=== PATIENT | male | born 1990 | race African-American/Black ===

== ENCOUNTER 2019-09-24 21:26 | Emergency (ER) | payer SELFPAY ==
[2019-09-24] MEDS ORDERED: Lidocaine 1% INJ* 10 MG/ML 30 ML SDV INJ ONE (23:43)
[2019-09-24] MEDS ORDERED: Bupivacaine 0.5%* 50 ML MDV VIAL INJ ONE (23:43)
[2019-09-24] MEDS ORDERED: Amoxicillin/Clavulanate TAB* 875 MG PO ONE (23:43)
--- NOTE | 2019-09-24 23:45 | ED ---
Throat Pain/Nasal Congestion - HPI Summary HPI Summary: 29-year-old male presents to the emergency department today with a chief complaint of left lower dental pain which began 3 days ago. Patient denies fevers. Patient states he was eating food when he believes his tooth cracked and now she feels like his cheek is swollen. Patient's pain is made worse with eating and made better with smoking marijuana. Patient has plans to see a dentist but is here for pain relief. Patient also complains of exposure to possible poly-fluids via a needlestick yesterday evening. Patient states he was driving a car when he felt a pinprick on his butt when he realized it was due to a needle. Patient is otherwise well and denies fever, chest pain, abdominal pain, pain with urination, rash, shortness of breath. Surgical history and family history is noncontributory. - History of Current Complaint Chief Complaint: EDEarPain Time Seen by Provider: 09/24/19 21:50 Hx Obtained From: Patient Onset/Duration: Gradual Onset Severity: Moderate Cough: None - Allergies/Home Medications Allergies/Adverse Reactions: Allergies Allergy/AdvReac Type Severity Reaction Status Date / Time No Known Allergies Allergy Verified 09/24/19 21:31 Home Medications: Home Medications Cyclobenzaprine TAB* [Flexeril TAB*] 10 mg PO TID PRN #15 tab 06/17/16 [Rx] Ibuprofen TAB* [Motrin TAB* 800 MG] 800 mg PO Q8H PRN #60 tab 06/17/16 [Rx] Amoxicillin/Clavulanate TAB* [Augmentin TAB 875*] 875 mg PO BID 7 Days #14 tab 09/25/19 [Rx] Ibuprofen TAB* [Motrin TAB* 800 MG] 800 mg PO Q8H PRN #12 tab 09/25/19 [Rx] PMH/Surg Hx/FS Hx/Imm Hx Infectious Disease History: No Infectious Disease History: Denies: Traveled Outside the [place] in Last 30 Days - Family History Known Family History: Positive: Hypertension - Social History Alcohol Use: Occasionally Alcohol Amount: hasn't drank this week Substance Use Type: Reports: Marijuana Substance Use Comment - Amount & Last Used: daily Smoking Status (MU): Light Every Day Tobacco Smoker Review of Systems Constitutional: Negative Eyes: Negative Positive: Dental Pain, Ear Ache Cardiovascular: Negative Respiratory: Negative Gastrointestinal: Negative Genitourinary: Negative Musculoskeletal: Negative Skin: Negative Neurological/Mental Status: Negative Positive: Anxious All Other Systems Reviewed And Are Negative: Yes Physical Exam - Summary Physical Exam Summary: Patient in no acute distress. Dentition is in poor repair. There is no obvious dental abscess. No evidence of cellulitis of the face. No evidence of Dawood angina. Triage Information Reviewed: Yes Vital Signs On Initial Exam: Initial Vitals Temp Pulse Resp BP Pulse Ox 98.2 F 116 18 167/78 98 09/24/19 21:31 09/24/19 21:31 09/24/19 21:31 09/24/19 21:31 09/24/19 21:31 Vital Signs Reviewed: Yes Appearance: Positive: Well-Appearing, No Pain Distress, Well-Nourished Skin: Positive: Warm, Skin Color Reflects Adequate Perfusion Eyes: Positive: EOMI, CARLOS ENT: Positive: Hearing grossly normal Respiratory/Lung Sounds: Positive: Clear to Auscultation, Breath Sounds Present Cardiovascular: Positive: RRR, S1, S2 Musculoskeletal: Positive: Strength/ROM Intact Neurological: Positive: Sensory/Motor Intact, Alert, Oriented to Person Place, Time, Normal Gait, Facial Symmetry, Speech Normal Psychiatric: Positive: Normal, Affect/Mood Appropriate AVPU Assessment: Alert Procedures - Sedation Patient Received Moderate/Deep Sedation with Procedure: No Diagnostics - Vital Signs Vital Signs Temp Pulse Resp BP Pulse Ox 09/24/19 21:31 98.2 F 116 18 167/78 98 - Laboratory Result Diagrams: 09/24/19 23:50 09/24/19 23:50 Lab Statement: Any lab studies that have been ordered have been reviewed, and results considered in the medical decision making process. EENT Course/Dx - Course Course Of Treatment: Patient was evaluated in the emergency department today for dental pain and complaint of possible exposure to bodily fluids via needle stick. Vitals noted and stable. Laboratory studies returned showing no significant abnormalities including no leukocytosis or electrolyte disturbance. Patient will be contacted with abnormal results of possible exposure labs. Patient was given Augmentin for dental abscess and ibuprofen for pain. Patient discharged with outpatient follow-up with dentistry and referral to infectious disease for further evaluation and management of exposure to bodily fluids. - Differential Diagnoses Differential Diagnoses: Dental Abscess, Dental Caries - Diagnoses Provider Diagnoses: History of exposure to hazardous bodily fluids, Pain, dental Discharge ED - Sign-Out/Discharge Documenting (check all that apply): Patient Departure - Discharge Plan Condition: Stable Disposition: HOME Prescriptions: Amoxicillin/Clavulanate TAB* [Augmentin TAB 875*] 875 mg PO BID 7 Days #14 tab Ibuprofen TAB* [Motrin TAB* 800 MG] 800 mg PO Q8H PRN #12 tab PRN Reason: Pain - Mild Patient Education Materials: Toothache (ED), Body Substance Exposure (ED) Referrals: [facility] [Outside] - 5 Days Stacia RODRIGUEZ,Heraclio Jha [Medical Doctor] - 7 Days No Primary Care Phys,NOPCP [Primary Care Provider] - Additional Instructions: Please take antibiotics as directed. Augmentin 875 twice daily for 7 days. Please follow up with a dentist for definitive management of your dental pain. Please follow-up with Dr. Palomo in 5-7 days for further evaluation and management and investigation of possible exposure to pathogens due to needlestick. Please return to the emergency department immediately if you develop any new or worsening symptoms. take ibuprofen for pain. - Billing Disposition and Condition Condition: STABLE Disposition: Home
[2019-09-24 23:59] LABS: ABS Basophils 0.2 10^3/ul (0-0.2); ABS Eosinophils 0.2 10^3/ul (0-0.6); ABS Lymphocytes 1.8 10^3/ul (1.0-4.8); ABS Monocytes 0.6 10^3/ul (0-0.8); ABS Neutrophils 3.8 10^3/ul (1.5-7.7); Eosinophil % 2.9 %; Hematocrit 46 % (42-52); Hemoglobin 15.1 g/dL (14.0-18.0); Lymphocyte % 26.6 %; Mean Corpuscular HGB Conc 33 g/dL (31-36); Mean Corpuscular Hemoglobin 29 pg (27-31); Mean Corpuscular Volume 88 fL (80-94); Mean Platelet Volume 7.8 fL (7.4-10.4); Nucleated Red Blood Cells % 0.1; Platelet Count 258 10^3/uL (150-450); Red Blood Count 5.21 10^6 /uL (4.18-5.48); Red Cell Distribution Width 13 % (10-15); White Blood Count 6.6 10^3/uL (3.5-10.8)
[2019-09-25 00:26] LABS: Albumin/Globulin Ratio 1.5 (1-3); BUN/Creatinine Ratio 9.8 (8-20); Calcium 10.3 mg/dL (8.6-10.3); EGFR African American 83.6 (>60); EGFR Non-African American 69.1 (>60); Globulin 3.4 g/dL (2-4); Potassium 3.9 mmol/L (3.5-5.0); Total Bilirubin 0.7 mg/dL (0.2-1.0); Total Protein 8.4 g/dL (6.4-8.9)
[2019-09-25] MEDS ORDERED: Ibuprofen TAB* 800 MG PO ONE (00:36)
[2019-09-25 00:48] VITALS: BP 139/88
[2019-09-25 01:03] LABS: Hepatitis B Surface Antigen Nonreactive (Nonreactive)
[2019-09-25 01:08] LABS: HIV 4th Generation Nonreactive (Nonreactive)
[2019-09-25 01:20] LABS: Hepatitis B Surface Ab Immune (Immune); Hepatitis C Antibody Negative (Negative)
== END 2019-09-25 00:47 | disposition home or self-care (01) ==
LOC: ED 21:26
DX: K08.89 Other specified disorders of teeth and supporting structures (principal); Z77.21 Contact with and (suspected) exposure to potentially hazardous body fluids; F17.200 Nicotine dependence, unspecified, uncomplicated
CPT/HCPCS: 36415; 80053; 85025; 86706; 86803; 87340; 87389; 99281; A9270-GY; J3490

== ENCOUNTER 2019-09-25 17:10 | Emergency (ER) | payer SELFPAY ==
--- NOTE | 2019-09-25 18:01 | ED ---
HPI Chest Pain - HPI Summary HPI Summary: 29-year-old male with significant past medical history of dental abscess diagnosed yesterday presents to the emergency department today complaining of "sharp" but not painful midsternal chest pain which feels like "there is a bubble in my heart". Patient states this is a constant pain which began after taking his Augmentin for dental abscesses morning. Patient states is feeling sometimes makes him want to pass out. 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 Patient denies recent illness. Patient denies associated symptoms such as nausea, vomiting, diaphoresis, shortness of breath, lightheadedness, arm pain, jaw pain. Patient otherwise feels well. Denies nausea, vomiting, diarrhea, rash, abdominal pain, pain with urination. - History of Current Complaint Chief Complaint: EDChestWallPain Time Seen by Provider: 09/25/19 17:37 Hx Obtained From: Patient Onset/Duration: Started Hours Ago Timing: Constant Initial Severity: Severe Current Severity: Severe Pain Intensity: 10 Pain Scale Used: 0-10 Numeric Chest Pain Location: Mid Sternal Chest Pain Radiates: No Character: Sharp/Stabbing Aggravating Factor(s): Nothing Alleviating Factor(s): Nothing Associated Signs and Symptoms: Positive: Chest Pain, Anxiety. Negative: Dizziness, Shortness of Breath, Fever, Nausea, Cough - Allergy/Home Medications Allergies/Adverse Reactions: Allergies Allergy/AdvReac Type Severity Reaction Status Date / Time No Known Allergies Allergy Verified 09/25/19 17:19 Home Medications: Home Medications Amoxicillin/Clavulanate TAB* [Augmentin TAB 875*] 875 mg PO BID 7 Days #14 tab 09/25/19 [Rx Confirmed 09/25/19] Ibuprofen TAB* [Motrin TAB* 800 MG] 800 mg PO Q8H PRN #12 tab 09/25/19 [Rx Confirmed 09/25/19] PMH/Surg Hx/FS Hx/Imm Hx Infectious Disease History: No Infectious Disease History: Denies: Traveled Outside the [place] in Last 30 Days - Family History Known Family History: Positive: Hypertension - Social History Alcohol Use: Occasionally Alcohol Amount: hasn't drank this week Substance Use Type: Reports: Marijuana Substance Use Comment - Amount & Last Used: daily Smoking Status (MU): Light Every Day Tobacco Smoker Review of Systems Constitutional: Negative Eyes: Negative ENT: Negative Positive: Chest Pain. Negative: Palpitations Respiratory: Negative Gastrointestinal: Negative Genitourinary: Negative Musculoskeletal: Negative Skin: Negative Neurological/Mental Status: Negative Positive: Anxious. Negative: Depressed All Other Systems Reviewed And Are Negative: Yes Physical Exam Triage Information Reviewed: Yes Vital Signs On Initial Exam: Initial Vitals Temp Pulse Resp BP Pulse Ox 99.4 F 104 16 144/85 100 09/25/19 17:17 09/25/19 17:17 09/25/19 17:17 09/25/19 17:17 09/25/19 17:17 Vital Signs Reviewed: Yes Appearance: Positive: Well-Appearing, No Pain Distress, Well-Nourished Skin: Positive: Warm, Skin Color Reflects Adequate Perfusion Eyes: Positive: EOMI, CARLOS ENT: Positive: Hearing grossly normal Respiratory/Lung Sounds: Positive: Clear to Auscultation, Breath Sounds Present Cardiovascular: Positive: RRR, S1, S2 Abdomen Description: Positive: Nontender, Soft Bowel Sounds: Positive: Present Musculoskeletal: Positive: Strength/ROM Intact Neurological: Positive: Sensory/Motor Intact, Alert, Oriented to Person Place, Time, Normal Gait Psychiatric: Positive: Normal, Affect/Mood Appropriate AVPU Assessment: Alert - Yeah yeah Procedures - Sedation Patient Received Moderate/Deep Sedation with Procedure: No Diagnostics - Vital Signs Vital Signs Temp Pulse Resp BP Pulse Ox 09/25/19 17:17 99.4 F 104 16 144/85 100 - Laboratory Result Diagrams: 09/25/19 17:58 09/25/19 17:58 Lab Statement: Any lab studies that have been ordered have been reviewed, and results considered in the medical decision making process. Chest Pain Course/Dx - Course Course Of Treatment: The patient was evaluated in the emergency department today for chest pain. Vitals noted. Patient is mildly tachycardic at 190 minute. EKG was done promptly which shows no evidence of STEMI. Sinus tachycardia at a rate of 109 bpm. Normal [place] and QTc intervals. Normal axis. No evidence of WPW or Brugada. There are borderline ST elevations in leads V1 and V2 which are consistent with benign early repolarization. Chest x-ray shows no acute pathology. Laboratory studies returned showing no significant abnormalities including no evidence of leukocytosis, normal CRP, no electronic disturbance, troponin 0.00. There is no evidence of acute medical pathology requiring intervention this time. Patient began having anxiety attack in the emergency department was given 1 mg of Ativan by mouth. Patient's symptoms improved markedly after this. Patient was discharged with outpatient follow- up. HEART score: 1, PERC: Positive Wells score for PE:1.5 (low risk). PE was considered in the differential diagnosis however thought very unlikely given well's score. - Chest Pain Differential Diagnosis/HQI/PQRI: Acute MN, ACS, Angina, Chest Wall, Pulmonary Embolism - Diagnoses Provider Diagnoses: Atypical chest pain Discharge ED - Sign-Out/Discharge Documenting (check all that apply): Patient Departure - Discharge Plan Condition: Stable Disposition: HOME Patient Education Materials: Chest Pain (ED) Referrals: No Primary Care Phys,NOPCP [Primary Care Provider] - [facility] [Outside] - 3 Days Additional Instructions: You were seen in the emergency department today due to chest pain. An EKG was done as well as blood studies which found no evidence of acute pathology requiring intervention at this time. Although I am not certain what is causing your pain cardiac origin cannot be ruled out. Please follow-up with your primary care provider or [facility] in 3-5 days for further evaluation and management. Please return to the emergency Department immediately if you develop any new or worsening symptoms. - Billing Disposition and Condition Condition: STABLE Disposition: Home
[2019-09-25 18:06] LABS: ABS Eosinophils 0.1 10^3/ul (0-0.6); ABS Lymphocytes 0.2 10^3/ul (1.0-4.8); ABS Monocytes 0.5 10^3/ul (0-0.8); ABS Neutrophils 4.7 10^3/ul (1.5-7.7); Eosinophil % 1.4 %; Hematocrit 42 % (42-52); Lymphocyte % 4.3 %; Mean Corpuscular HGB Conc 34 g/dL (31-36); Mean Corpuscular Hemoglobin 29 pg (27-31); Mean Corpuscular Volume 87 fL (80-94); Platelet Count 208 10^3/uL (150-450); Red Blood Count 4.79 10^6 /uL (4.18-5.48); Red Cell Distribution Width 13 % (10-15); White Blood Count 5.6 10^3/uL (3.5-10.8)
[2019-09-25 18:23] LABS: Albumin 4.8 g/dL (3.2-5.2); Albumin/Globulin Ratio 1.7 (1-3); BUN/Creatinine Ratio 8.4 (8-20); C Reactive Protein 19.22 mg/L (<8.01); EGFR African American 77.7 (>60); EGFR Non-African American 64.2 (>60); Globulin 2.9 g/dL (2-4); Potassium 3.9 mmol/L (3.5-5.0); Total Bilirubin 0.6 mg/dL (0.2-1.0); Total Protein 7.7 g/dL (6.4-8.9)
[2019-09-25] MEDS ORDERED: LORazepam TAB(*) 1 MG PO ONE (18:25)
[2019-09-25 19:08] VITALS: BP 106/71
== END 2019-09-25 19:07 | disposition home or self-care (01) ==
LOC: ED 17:10
DX: R07.89 Other chest pain (principal); F17.200 Nicotine dependence, unspecified, uncomplicated
CPT/HCPCS: 36415; 71046; 80053; 84484; 85025; 86140; 93005; 99282; A9270-GY

== ENCOUNTER 2019-09-26 16:00 | Emergency (ER) | payer SELFPAY ==
[2019-09-26 16:26] VITALS: BP 118/72
--- NOTE | 2019-09-26 16:46 | UC ---
UC General HPI - HPI Summary HPI Summary: patient is very anxious has felt bad for a couple of weeks 1. got poked by something pin/needle/syringe/tack while moving furniture at work---He has a memory of a tv show called OZ where some one was poked by a needle and they dies a few days later 2. has had chest congestion for a few weeks 3. recently feeling worse body aches, fever, fatigue---concerned he has the illness from the "poke" - History of Current Complaint Chief Complaint: UCGeneralIllness Stated Complaint: CHEST COMPLAINT Time Seen by Provider: 09/26/19 16:05 Hx Obtained From: Patient Onset/Duration: Gradual Onset, Lasting Days Timing: Constant Onset Severity: Moderate Current Severity: Moderate Pain Intensity: 6 Associated Signs & Symptoms: Positive: Cough - Allergy/Home Medications Allergies/Adverse Reactions: Allergies Allergy/AdvReac Type Severity Reaction Status Date / Time No Known Allergies Allergy Verified 09/25/19 17:19 Home Medications: Home Medications Amoxicillin/Clavulanate TAB* [Augmentin TAB 875*] 875 mg PO BID 7 Days #14 tab 09/25/19 [Rx Confirmed 09/25/19] Ibuprofen TAB* [Motrin TAB* 800 MG] 800 mg PO Q8H PRN #12 tab 09/25/19 [Rx Confirmed 09/25/19] Oseltamivir CAP* [Tamiflu CAP*] 75 mg PO BID #9 cap 09/26/19 [Rx] PMH/Surg Hx/FS Hx/Imm Hx Previously Healthy: No - Surgical History Surgical History: None - Family History Known Family History: Positive: Hypertension - Social History Occupation: Employed Part-time Lives: With Family Alcohol Use: Daily Alcohol Amount: hasn't drank this week Substance Use Type: Marijuana Substance Use Comment - Amount & Last Used: daily Smoking Status (MU): Light Every Day Tobacco Smoker Review of Systems All Other Systems Reviewed And Are Negative: Yes Constitutional: Positive: Fever, Chills, Fatigue Skin: Positive: Negative Eyes: Positive: Negative ENT: Positive: Nasal Discharge, Sinus Congestion Respiratory: Positive: Cough Cardiovascular: Positive: Negative Gastrointestinal: Positive: Negative Genitourinary: Positive: Negative Motor: Positive: Negative Neurovascular: Positive: Negative Musculoskeletal: Positive: Arthralgia, Myalgia Neurological/Mental Status: Positive: Negative Psychological: Positive: Anxious Is Patient Immunocompromised?: No Physical Exam Triage Information Reviewed: Yes Appearance: Well-Nourished, Ill-Appearing - mild, Pain Distress - mild Vital Signs: Initial Vital Signs Temp 101.2 F 09/26/19 16:20 Pulse 100 09/26/19 16:20 Resp 20 09/26/19 16:20 BP 118/72 09/26/19 16:20 Pulse Ox 100 09/26/19 16:20 Vital Signs Reviewed: Yes Eye Exam: Normal Eyes: Positive: Conjunctiva Clear ENT Exam: Normal ENT: Positive: Normal ENT inspection, Hearing grossly normal, Pharynx normal, TMs normal. Negative: Nasal congestion, Tonsillar swelling, Tonsillar exudate, Trismus, Muffled voice, Hoarse voice, Sinus tenderness, Uvula midline Dental Exam: Normal Neck exam: Normal Neck: Positive: Supple, Nontender, No Lymphadenopathy Respiratory Exam: Normal Respiratory: Positive: Chest non-tender, Lungs clear, Normal breath sounds, No respiratory distress, No accessory muscle use Cardiovascular Exam: Normal Cardiovascular: Positive: RRR, No Murmur, Pulses Normal, Brisk Capillary Refill Musculoskeletal Exam: Normal Musculoskeletal: Positive: Strength Intact, ROM Intact, No Edema Neurological Exam: Normal Neurological: Positive: Alert, Muscle Tone Normal Psychological Exam: Normal Psychological: Positive: Normal Response To Family Skin Exam: Normal Diagnostics - Laboratory Lab Results: influenza A + Course/Dx - Course Course Of Treatment: patient required significance amount of emotional support and education--- patient is still doubtful, but less concerned and seems to have a greater understanding about NOT dying (like the person on OZ) from the "poke injury" patient will be rx tamiflu and follow with pcp-- - Diagnoses Provider Diagnosis: Influenza A, Knowledge deficit, Anxiety Discharge ED - Sign-Out/Discharge Documenting (check all that apply): Patient Departure All imaging exams completed and their final reports reviewed: No Studies - Discharge Plan Condition: Stable Disposition: HOME Prescriptions: Oseltamivir CAP* [Tamiflu CAP*] 75 mg PO BID #9 cap Patient Education Materials: Influenza (ED), How to Use a Metered-Dose Inhaler and a Spacer (ED) Referrals: [facility] [Outside] - 3 Days - Billing Disposition and Condition Condition: STABLE Disposition: Home
[2019-09-26 17:00] LABS: Influenza A Molecular POSITIVE (Negative)
[2019-09-26] MEDS ORDERED: Oseltamivir CAP* 75 MG CAP PO ONE (17:06)
[2019-09-26] MEDS ORDERED: Albuterol HFA INHALER* 8 gm MDI INH ONE (17:07)
== END 2019-09-26 17:30 | disposition home or self-care (01) ==
LOC: UCEAST 16:00
DX: J10.1 Influenza due to other identified influenza virus with other respiratory manifestations (principal); F81.9 Developmental disorder of scholastic skills, unspecified; F41.9 Anxiety disorder, unspecified; F17.200 Nicotine dependence, unspecified, uncomplicated
CPT/HCPCS: 99212; A9270-GY; G0463

== ENCOUNTER 2022-04-19 20:11 | Inpatient (IN) ==
[2022-04-19 21:57] LABS: Urine Appearance Clear; Urine Bilirubin 1+ (Small) (Negative); Urine Blood 3+ (Large) (Negative); Urine Color Amber; Urine Glucose Negative (Negative); Urine Ketones Negative (Negative); Urine Nitrite Negative (Negative); Urine Protein 3+ (>=300 mg/dL) (Negative); Urine Urobilinogen 0.2 (Negative) (Negative)
[2022-04-19 22:18] LABS: ABS Eosinophils 0.2 10^3/ul (0-0.6); ABS Lymphocytes 1.7 10^3/ul (1.0-4.8); ABS Monocytes 0.4 10^3/ul (0-0.8); ABS Neutrophils 2.8 10^3/ul (1.5-7.7); Eosinophil % 3.8 %; Hematocrit 44 % (42-52); Hemoglobin 13.8 g/dL (14.0-18.0); Lymphocyte % 33.7 %; Mean Corpuscular HGB Conc 32 g/dL (31-36); Mean Corpuscular Hemoglobin 27 pg (27-31); Mean Corpuscular Volume 85 fL (80-94); Mean Platelet Volume 8.4 fL (7.4-10.4); Nucleated Red Blood Cells % 0.1; Platelet Count 236 10^3/uL (150-450); Red Blood Count 5.17 10^6 /uL (4.18-5.48); Red Cell Distribution Width 14 % (10-15); White Blood Count 5.2 10^3/uL (3.5-10.8)
[2022-04-19 22:45] LABS: Albumin 4.2 g/dL (3.2-5.2); Albumin/Globulin Ratio 1.4 (1-3); Calcium 9.7 mg/dL (8.6-10.3); Potassium 4.2 mmol/L (3.5-5.0); Total Bilirubin 0.5 mg/dL (0.2-1.0); Total Protein 7.2 g/dL (6.4-8.9)
[2022-04-19 23:29] LABS: Urine Bacteria Absent (Absent); Urine Red Blood Cell 1+(3-5/hpf) (Absent); Urine White Blood Cell 2+(11-20/hpf) (Absent)
[2022-04-20] MEDS ORDERED: Lactated Ringers 1000 ml BAG 1,000 ML IV ONE ×3 (01:17→02:48)
[2022-04-20] MEDS ORDERED: NS 0.9% 1000 ml BAG 1,000 ML IV SCH (05:00)
[2022-04-20 06:32] LABS: Magnesium 1.9 mg/dL (1.9-2.7)
[2022-04-20 06:37] LABS: Phosphorus 3.7 mg/dL (2.5-5.0)
[2022-04-20 07:49] LABS: Urine Benzodiazepine Screen None Detected (None Detect); Urine Cannabinoids Screen None Detected (None Detect); Urine Opiates Screen None Detected (None Detect)
[2022-04-20 10:04] LABS: Calcium 9.3 mg/dL (8.6-10.3); Potassium 4.4 mmol/L (3.5-5.0); eGFR CKD-EPI 90.5 (>60)
[2022-04-20 10:18] LABS: TSH Ultra Thyroid Stim Horm 1.57 mcIU/mL (0.34-5.60)
[2022-04-20] MEDS: NS 0.9% 1000 ml BAG 1,000 ML IV SCH ×2 (16:05→22:33)
[2022-04-21] MEDS: NS 0.9% 1000 ml BAG 1,000 ML IV SCH ×3 (04:44→17:24)
[2022-04-21 06:49] LABS: ABS Eosinophils 0.2 10^3/ul (0-0.6); ABS Lymphocytes 1.2 10^3/ul (1.0-4.8); ABS Monocytes 0.3 10^3/ul (0-0.8); Eosinophil % 5.8 %; Hematocrit 40 % (42-52); Hemoglobin 12.7 g/dL (14.0-18.0); Mean Corpuscular HGB Conc 32 g/dL (31-36); Mean Corpuscular Hemoglobin 27 pg (27-31); Mean Corpuscular Volume 85 fL (80-94); Mean Platelet Volume 8.6 fL (7.4-10.4); Platelet Count 209 10^3/uL (150-450); Red Cell Distribution Width 14 % (10-15); White Blood Count 3.8 10^3/uL (3.5-10.8)
[2022-04-21 07:26] LABS: CKMB ng/mL 11.7 ng/mL (0.6-6.3)
[2022-04-22 06:30] LABS: Hematocrit 42 % (42-52); Hemoglobin 13.1 g/dL (14.0-18.0); Mean Corpuscular HGB Conc 31 g/dL (31-36); Mean Corpuscular Hemoglobin 26 pg (27-31); Mean Corpuscular Volume 84 fL (80-94); Mean Platelet Volume 8.8 fL (7.4-10.4); Platelet Count 220 10^3/uL (150-450); Red Blood Count 5.03 10^6 /uL (4.18-5.48); Red Cell Distribution Width 13 % (10-15); White Blood Count 4.8 10^3/uL (3.5-10.8)
[2022-04-22 06:48] LABS: Calcium 9.5 mg/dL (8.6-10.3); Potassium 4.4 mmol/L (3.5-5.0); eGFR CKD-EPI 86.7 (>60)
[2022-04-22 09:26] LABS: Albumin 3.8 g/dL (3.2-5.2); Direct Bilirubin 0.1 mg/dL (0.03-0.18); Indirect Bilirubin 0.2 mg/dL (0.3-1.0); Total Bilirubin 0.3 mg/dL (0.2-1.0)
[2022-04-22 09:32] LABS: Albumin/Globulin Ratio 1.4 (1-3); Globulin 2.8 g/dL (2-4); Total Protein 6.6 g/dL (6.4-8.9)
[2022-04-22] MEDS ORDERED: Furosemide 40 mg/4 ml IV VIAL IV ONE (10:08)
[2022-04-22] MEDS ORDERED: NS 0.9% 1000 ml BAG 1,000 ML IV SCH ×2 (10:09→16:46)
[2022-04-22] MEDS: NS 0.9% 1000 ml BAG 1,000 ML IV SCH (23:56)
[2022-04-23] MEDS: NS 0.9% 1000 ml BAG 1,000 ML IV SCH ×4 (05:18→22:17)
[2022-04-23 06:31] LABS: CO2 Carbon Dioxide 25 mmol/L (22-32); Chloride 103 mmol/L (101-111); Sodium 137 mmol/L (135-145)
[2022-04-23 06:33] LABS: Anion Gap 9 mmol/L (2-11)
[2022-04-23 06:36] LABS: Blood Urea Nitrogen 11 mg/dL (6-24); Glucose 138 mg/dL (70-100)
[2022-04-23 09:06] LABS: Creatine Kinase 19223 U/L (10-223)
[2022-04-23] MEDS ORDERED: Furosemide 40 mg/4 ml IV VIAL IV ONE (10:11)
[2022-04-24] MEDS: NS 0.9% 1000 ml BAG 1,000 ML IV SCH ×6 (03:30→23:38)
[2022-04-24] MEDS ORDERED: Furosemide 40 mg/4 ml IV VIAL IV ONE ×2 (13:01→19:00)
[2022-04-25] MEDS: NS 0.9% 1000 ml BAG 1,000 ML IV SCH ×2 (04:02→07:41)
[2022-04-25 12:18] VITALS: BP 132/79
== END 2022-04-25 16:15 | disposition home or self-care (01) | DRG 351 ==
LOC: ED 20:11 → EDHOLD 04-20 04:38 → OBSVTOIN 04-20 04:38 → SUATTDRO 04-20 04:38 → INTOOBSV 04-20 04:38 → MEDTELE 04-20 07:59
PROVIDERS: ADMIT Internal Medicine; ATTEND Internal Medicine